=== PATIENT | male | born 1975 | race Hispanic/Latino ===

== ENCOUNTER 2018-11-05 19:44 | Emergency (ER) | payer SELFPAY ==
[2018-11-05 20:12] LABS: #Basophils 0.1 thou/uL (0.0-0.2); #Eosinphils 0.2 thou/uL (0.0-0.7); #Lymphocytes 1.9 thou/uL (1.20-3.40); #Monocytes 0.4 thou/uL (0.11-0.59); #Neutrophils 2.9 thou/uL (1.40-6.50); %Eosinophils 3.4 % (0.0-10.0); %Lymphocytes 34.7 % (21.0-51.0); %Monocytes 7.9 % (0.0-10.0); %Neutrophils 53.1 % (42.0-75.0); Hemoglobin 16.5 g/dL (14.0-18.0); Mean Corpuscular HGB CONC 34.4 g/dL (32.0-36.0); Mean Corpuscular Hemoglobin 30.1 pg (27.0-31.0); Mean Corpuscular Volume 87.4 fL (78.0-98.0); Mean Platelet Volume 9.4 fL (7.4-10.4); Platelet Count 187 thou/uL (130-400); RBC Distribution Width 11.6 % (11.5-14.5); Red Blood Cell (RBC) Count 5.48 mill/uL (4.70-6.10); White Blood Cell (WBC) Count 5.5 thou/uL (4.8-10.8)
[2018-11-05 20:31] LABS: ALT (SGPT) 44 U/L (8-55); AST (SGOT) 25 U/L (5-34); Albumin 4.4 g/dL (3.5-5.0); Alkaline Phosphatase 77 U/L (40-150); Anion Gap 15 mmol/L (10-20); BUN (Urea Nitrogen) 19 mg/dL (8.9-20.6); Bilirubin, Total 0.6 mg/dL (0.2-1.2); Calc. Creatinine Clearance 0 mL/min (70-130); Calcium 9.5 mg/dL (7.8-10.44); Carbon Dioxide 22 mmol/L (22-29); Chloride 106 mmol/L (98-107); Estimated GFR-MDRD 65; Globulin 3.3 g/dL (2.4-3.5); Glucose 99 mg/dL (70-105); Potassium 3.8 mmol/L (3.5-5.1); Protein, Total 7.7 g/dL (6.0-8.3); Sodium 139 mmol/L (136-145)
--- NOTE | 2018-11-05 20:44 | CT ---
CT Brain WO Con History: Dizziness. Hypertensive urgency Comparison: None. Findings: No acute hemorrhage or infarct. No midline shift or mass effect. Ventricular size and extra -axial CSF spaces are normal. Calvarium is intact. The paranasal sinuses and mastoids are clear. Impression: No acute intracranial abnormality.
[2018-11-05] MEDS ORDERED: Metoclopramide HCl 10 MG/2 ML VIAL ONE (20:45)
[2018-11-05] MEDS ORDERED: Meclizine HCl 25 MG TAB ONE (20:45)
[2018-11-05] MEDS ORDERED: hydrALAZINE 20 MG/ML VIAL ONE (22:08)
--- NOTE | 2018-11-10 12:34 | EKG ---
Test Reason : CHEST PAIN Blood Pressure : / mmHG Vent. Rate : 059 BPM Atrial Rate : 059 BPM P-R Int : 154 ms QRS Dur : 090 ms QT Int : 400 ms P-R-T Axes : 028 007 022 degrees QTc Int : 396 ms Sinus bradycardia Otherwise normal ECG Confirmed by ENOC BREEN ([id number]), video effects editor HENRRY NINA ([id number]) on 11/10/2018 12:34:12 PM Referred By: Confirmed By:ENOC BREEN
== END 2018-11-06 00:02 | disposition home or self-care (01) ==
LOC: ERS 19:44
DX: H81.399 Other peripheral vertigo, unspecified ear (principal); I10 Essential (primary) hypertension; Z79.899 Other long term (current) drug therapy
CPT/HCPCS: 36415; 70450; 80053; 84484; 85025; 93005; 96361; 96374; 96375; J0360; J2765; J8597

== ENCOUNTER 2019-04-16 14:39 | Inpatient (IN) | payer SELFPAY ==
[2019-04-16] MEDS ORDERED: Nitroglycerin 2% Ointment 1 INCH/1 GM Packet ONE (15:07)
[2019-04-16] MEDS ORDERED: Iopamidol-370 76% 500 ML 1 ML ONE (15:20)
--- NOTE | 2019-04-16 15:44 | RAD ---
XR Chest 1 View Portable HISTORY: Chest pain COMPARISON: 01/26/2007 FINDINGS: The heart size is normal. The lungs are well expanded without focal areas of consolidation, pneumothorax or pleural effusions. IMPRESSION: No radiographic evidence of acute cardiopulmonary process.
[2019-04-16] MEDS ORDERED: niCARdipine 25 MG in Sodium Chloride 0.9% 250 ML 240 ML IVPB SCH (15:45)
--- NOTE | 2019-04-16 15:47 | CT ---
CT BRAIN WITHOUT CONTRAST: HISTORY:Syncope, fall COMPARISON:11/02/2018 FINDINGS: No evidence of acute infarct, hemorrhage, midline shift or abnormal extra-axial fluid collections is seen. The ventricular size is appropriate and the basilar cisterns are patent. The bony calvarium is intact. The visualized paranasal sinuses and mastoid air cells are well aerated. There is a small scalp contusion posteriorly at the level of the vertex to the right of midline. IMPRESSION: No CT evidence of acute intracranial process.
[2019-04-16 16:05] LABS: #Eosinphils 0.1 thou/uL (0.0-0.7); #Lymphocytes 1.5 thou/uL (1.20-3.40); #Monocytes 0.5 thou/uL (0.11-0.59); #Neutrophils 7.2 thou/uL (1.40-6.50); %Basophils 0.4 % (0.0-1.0); %Eosinophils 0.8 % (0.0-10.0); %Lymphocytes 16.2 % (21.0-51.0); %Monocytes 4.8 % (0.0-10.0); %Neutrophils 77.8 % (42.0-75.0); Hemoglobin 18.6 g/dL (14.0-18.0); Mean Corpuscular HGB CONC 34.6 g/dL (32.0-36.0); Mean Corpuscular Hemoglobin 30.3 pg (27.0-31.0); Mean Corpuscular Volume 87.4 fL (78.0-98.0); Mean Platelet Volume 9.9 fL (7.4-10.4); Platelet Count 178 thou/uL (130-400); RBC Distribution Width 11.4 % (11.5-14.5); Red Blood Cell (RBC) Count 6.13 mill/uL (4.70-6.10); White Blood Cell (WBC) Count 9.3 thou/uL (4.8-10.8)
[2019-04-16 16:25] LABS: ALT (SGPT) 39 U/L (8-55); AST (SGOT) 30 U/L (5-34); Alkaline Phosphatase 89 U/L (40-110); Anion Gap 11 mmol/L (10-20); BUN (Urea Nitrogen) 21 mg/dL (8.9-20.6); Bilirubin, Total 0.5 mg/dL (0.2-1.2); CK (CPK) 121 U/L (30-200); Calc. Creatinine Clearance 0 mL/min (70-130); Calcium 10.1 mg/dL (7.8-10.44); Carbon Dioxide 25 mmol/L (22-29); Chloride 108 mmol/L (98-107); Estimated GFR-MDRD 49; Globulin 3.6 g/dL (2.4-3.5); Glucose 103 mg/dL (70-105); Protein, Total 8.6 g/dL (6.0-8.3); Sodium 140 mmol/L (136-145)
[2019-04-16 16:55] LABS: Bilirubin Negative (Negative); Blood, Urine Negative (Negative); Clarity Clear (Clear); Glucose, Urine (Dipstick) Normal (Negative); Leukocyte Negative Leu/uL (Negative); Nitrite Negative (Negative); Protein, Urine (Dipstick) Negative (Neg-Trace); Urobilinogen Normal mg/dL (Less than 2)
--- NOTE | 2019-04-16 17:47 | CT ---
CTA chest with 3-D rendering: CTA abdomen with 3-D rendering: HISTORY: Chest pain. Syncope. Severe hypertension. COMPARISON: None FINDINGS: No CT evidence for aortic aneurysm or dissection. No evidence for acute pulmonary parenchymal process. No evidence for pleural or pericardial effusion. No evidence for mediastinal mass or adenopathy. No evidence for abdominal aortic aneurysm or dissection. The visualized celiac, superior mesenteric, inferior mesenteric and bilateral renal arteries show no significant acute process. The visualized abdominal viscera is unremarkable. No evidence for significant acute process. IMPRESSION: No CT evidence for aortic aneurysm or aortic dissection.
[2019-04-16] MEDS ORDERED: HYDROcodone/Acetaminophen 5/325 mg Tablet PO PRN (18:27)
[2019-04-16] MEDS ORDERED: Morphine 2 MG/ML SYRINGE SLOW IVP PRN (18:29)
--- NOTE | 2019-04-16 19:26 | HP ---
PRIMARY CARE: [facility], Dr. Menezes. CHIEF COMPLAINT: "I don't remember." HISTORY OF PRESENT ILLNESS: This is a 43-year-old male with history of hypertension, uncontrolled based on history, who was brought to the emergency room by EMS for a syncopal event. The history is all obtained from the patient's daughter, who reports that she was at [facility], where the patient works and a witness described him as falling back from a standing position. He landed on his back and the back of his head. Since that time, he has been asking the same questions. No prior history of this, the patient does not remember how he felt prior to this event. His daughter witnessed him on the floor and he was brought in. The patient does have known high blood pressure and reports taking one medication at home. It has not recently been checked, he reports taking 1 medication for blood pressure and estimates the last visit with his Primary Care Physician was 3 months ago. The patient does complain of a headache and jaw pain at this time. The patient denies any vision changes. (He did buy glasses recently, but since the syncopal event is not noticing changes.) He also denies any speech or swallowing problems, nausea, vomiting, abdominal pain, chest pain, any regular headaches, or palpitations. In the emergency room, the patient received 2 L IV fluid, 1 inch of nitroglycerin paste due to the elevated blood pressures which was since discontinued, and started on a Cardene drip, and Hospitalist called for admission. ALLERGIES: NO KNOWN DRUG ALLERGIES. CURRENT MEDICATIONS: Not obtainable, 1 medication for hypertension. PAST MEDICAL HISTORY: Hypertension. PAST SURGICAL HISTORY: Denies. SOCIAL HISTORY: The patient is . He is Mongolian speaking. His daughter is translating for him by his request. No tobacco and rare alcohol use. FAMILY HISTORY: Significant for hypertension in both parents. REVIEW OF SYSTEMS: Negative for nausea, vomiting, abdominal pain, chest pain, regular headaches, change in health, acute vision changes, urine changes, difficulty with speech or swallowing. All remaining review of systems are reviewed and negative. PHYSICAL EXAMINATION: VITAL SIGNS: Blood pressure 187/139, pulse 138, respirations 22, sat is 100% on room air, temp 98.5. GENERAL: The patient is awake, alert, responsive, answering questions, speaking in full sentences. By report from the daughter, he continually asks the same question. HEENT: His pupils are equal, round, and reactive to light. Tympanic membranes translucent. Oral mucosa is pink and moist. Abrasion in the occipital area, no tenderness to palpation, mild edema in this area. NECK: Supple, nontender. LYMPHATICS: No palpable cervical or supraclavicular lymphadenopathy. LUNGS: Clear to auscultation bilaterally with good air movement. HEART: Normal S1, S2. No significant murmur. ABDOMEN: Soft. Present bowel sounds. Nontender. Nondistended. EXTREMITIES: No edema. NEUROLOGIC: Cranial nerves 2 through 12 are intact. Upper and lower extremity strength 5/5 bilateral. VASCULAR: 2+ dorsalis pedis pulses. PSYCH: The patient appears euthymic, tearful when answering questions. DIAGNOSTIC DATA: EKG, personally reviewed, sinus rhythm, normal axis, normal intervals, no ST changes, abnormal R-wave progression. CT of the brain was negative for any acute process. Chest x-ray is personally reviewed, no acute cardiopulmonary process. CT dissection protocol of the chest, no evidence for aortic aneurysm or aortic dissection. LABORATORY DATA: CBC; 9.3, 18.6, 53.6, 178 with 77.8% neutrophils, 16% lymphocytes. Renal panel; 140, 4.0, 108, 25, 21, 1.56, and 103. Total bilirubin 0.5, AST 30, ALT 39, alkaline phosphatase 89, total protein 8.6, albumin 5.0. Urinalysis is normal. IMPRESSION: 1. Syncopal event, unknown provocation, in patient with uncontrolled hypertension. 2. Hypertensive emergency with syncope. 3. Concussion secondary to above. 4. Acute kidney injury. 5. Hemoconcentration vs polycythemia. PLAN: 1. Admission to the ICU, consultation per protocol. 2. Continuing the Cardene drip with a goal of systolic blood pressure around 170 for tonight, monitor with neurologic checks. Anticipate starting oral antihypertensives tomorrow. 3. Obtain echocardiogram, IV fluid hydration for the kidney injury and hemoconcentration, neurologic checks for the concussion. 4. Due to the tachycardia, we will treat pain, check TSH in the morning. 5. As part of the syncope evaluation, obtain echocardiogram, check a urine drug screen and alcohol level. 6. Monitor renal function. 7. Heart healthy diet. 8. We will need to obtain home medication to determine what medications to start or adjust. 9. DVT prophylaxis with pneumatic compression devices. 10. Falls precautions. 11. GI prophylaxis not indicated. 12. Code status is full. Surrogate decision maker is the patient's . 13. Reviewed the plan of care with the patient, his family, which includes his daughter, who was translating for him. No questions or further needs at the end of evaluation. 14. The patient is at high risk, given age, comorbidities, and current presentation. Job ID: [id number] [facility]
[2019-04-16 19:44] LABS: Troponin I 0.024 ng/mL (< 0.028)
[2019-04-16] MEDS: niCARdipine 25 MG in Sodium Chloride 0.9% 250 ML 240 ML IVPB SCH ×2 (19:45→22:44)
[2019-04-16] MEDS: Sodium Chloride 0.9% 1,000 ML IV SCH (19:51)
[2019-04-16 19:54] LABS: Amphetamine Not Detected (NotDetected); Barbiturates Screen Not Detected (NotDetected); Benzodiazepine Screen Not Detected (NotDetected); Cocaine Metabolite Screen Not Detected (NotDetected); Medtox Control Line Valid? VALID (VALID); Medtox Reader # READER 4; Methadone Not Detected (NotDetected); Methamphetamine Not Detected (NotDetected); Opiate Screen Not Detected (NotDetected); Oxycodone Screen Not Detected (NotDetected); Phencyclidine (PCP) Not Detected (NotDetected); THC/Cannabinoid Screen Not Detected (NotDetected); Tricyclic Screen Not Detected (NotDetected)
[2019-04-16 22:25] LABS: Troponin I 0.031 ng/mL (< 0.028)
[2019-04-17] MEDS: Sodium Chloride 0.9% 1,000 ML IV SCH ×2 (05:22→22:15)
[2019-04-17 05:52] LABS: #Eosinphils 0.1 thou/uL (0.0-0.7); #Lymphocytes 1.8 thou/uL (1.20-3.40); #Monocytes 0.6 thou/uL (0.11-0.59); #Neutrophils 4.1 thou/uL (1.40-6.50); %Basophils 0.1 % (0.0-1.0); %Eosinophils 0.9 % (0.0-10.0); %Lymphocytes 26.7 % (21.0-51.0); %Monocytes 9.7 % (0.0-10.0); %Neutrophils 62.5 % (42.0-75.0); Hemoglobin 15.1 g/dL (14.0-18.0); Mean Corpuscular HGB CONC 33.9 g/dL (32.0-36.0); Mean Corpuscular Hemoglobin 29.7 pg (27.0-31.0); Mean Corpuscular Volume 87.4 fL (78.0-98.0); Mean Platelet Volume 10.3 fL (7.4-10.4); Platelet Count 165 thou/uL (130-400); RBC Distribution Width 11.6 % (11.5-14.5); Red Blood Cell (RBC) Count 5.08 mill/uL (4.70-6.10); White Blood Cell (WBC) Count 6.6 thou/uL (4.8-10.8)
[2019-04-17 05:54] LABS: Anion Gap 10 mmol/L (10-20); BUN (Urea Nitrogen) 14 mg/dL (8.9-20.6); Calc. Creatinine Clearance 130 mL/min (70-130); Calcium 8.9 mg/dL (7.8-10.44); Carbon Dioxide 24 mmol/L (22-29); Cardiac Risk 3.4 (Less than 4.5); Chloride 108 mmol/L (98-107); Cholesterol 170 mg/dl (< 200 Desired); Estimated GFR-MDRD 77; Glucose 107 mg/dL (70-105); HDL Cholesterol 50 mg/dL (>60 Neg Risk); LDL Cholesterol, Calculated 99 mg/dL; Potassium 3.7 mmol/L (3.5-5.1); Sodium 138 mmol/L (136-145); Triglycerides 103 mg/dL (Less than 150)
[2019-04-17] MEDS: HYDROcodone/Acetaminophen 5/325 mg Tablet PO PRN (06:35)
--- NOTE | 2019-04-17 08:13 | PDOC.HOSPP ---
- Subjective Encounter Date: 04/17/19 (f/u HTN emergency) Encounter Time: 08:12 Subjective: Pt this morning does not remember the events of yesterday. reports he's had ongoing dizziness daily to every other day that are brief but recur through the day, sometimes with vomiting. She reports 2 episodes in the past week that pt does not remember. Pt reports some memory of this in the past. Currently c/ o headache and pain all over his body, including chest. - Objective Vital Signs & Weight: Vital Signs (12 hours) Temp Pulse Ox 04/17/19 07:44 100 04/17/19 04:00 98.6 F 04/17/19 00:00 99.4 F Weight Weight 223 lb 15.834 oz Most Recent Monitor Data Heart Rate from ECG 81 NIBP 127/88 NIBP BP-Mean 101 Respiration from ECG 17 SpO2 100 I&O: 04/16/19 04/17/19 04/18/19 06:59 06:59 06:59 Intake Total 1806 Output Total 1675 400 Balance 131 -400 Result Diagrams: 04/17/19 05:06 04/17/19 05:06 EKG Reviewed by me: Yes (tele - sinus 80's) Hospitalist ROS - Medication Medications: Active Medications Generic Name Dose Route Start Last Admin Trade Name Freq PRN Reason Stop Dose Admin Hydrocodone Bitart/Acetaminophen 1 tab 04/16/19 18:27 04/16/19 22:51 [place] 5/325 PO 1 tab Q4H PRN Administration Moderate Pain (4-6) Hydrocodone Bitart/Acetaminophen 2 tab 04/16/19 18:27 04/17/19 06:35 [place] 5/325 PO 2 tab Q4H PRN Administration Severe Pain (7-10) Nicardipine HCl 25 mg/ Sodium 250 mls @ 0 mls/hr 04/16/19 18:30 04/16/19 22: 44 Chloride IVPB 250 mls INF LISA Administration Protocol Titrate Sodium Chloride 1,000 mls @ 100 mls/hr 04/16/19 18:45 04/17/19 05:22 Normal Saline 0.9% IV 1,000 mls .Q10H LISA Administration Sodium Chloride 10 ml 04/16/19 21:00 04/16/19 19:51 Flush - Normal Saline IVF 10 ml Q12HR LISA Administration - Exam General Appearance: NAD, awake alert Eye: PERRL Heart: RRR, no murmur, no gallops, no rubs Respiratory: CTAB, no wheezes, no rales, no ronchi Gastrointestinal: soft, non-tender, non-distended, normal bowel sounds Extremities: no cyanosis, no clubbing, no edema Neurological: cranial nerve grossly intact, no focal deficits Musculoskeletal: normal tone Psychiatric: normal affect Hosp A/P (1) Hypertensive emergency Code(s): I16.1 - HYPERTENSIVE EMERGENCY Status: Resolved (2) Acute kidney injury Code(s): N17.9 - ACUTE KIDNEY FAILURE, UNSPECIFIED Status: Resolved (3) Concussion Code(s): S06.0X9A - CONCUSSION W LOSS OF CONSCIOUSNESS OF UNSP DURATION, INIT Status: Acute Qualifiers: Encounter type: subsequent encounter (4) Syncope Code(s): R55 - SYNCOPE AND COLLAPSE Status: Acute Qualifiers: Syncope type: unspecified Qualified Code(s): R55 - Syncope and collapse (5) Dehydration Code(s): E86.0 - DEHYDRATION Status: Resolved - Plan Labs normalized, bp normalized and has been off cardene overnight with normal bp 's. - check echo - obtain troponin from this morning's lab draws - one slightly indeterminant last night - transfer to tele - pt's home med is beta-daljit - hold on initiating this for now, as it may be contributing to his sx - most recent bp ios 140's systolic - monitor today and consider amloidipine - Neuro consult for dizziness - falls precautions, PT evaluation - continue to tx pain - d/c IVF later today when taking adequate PO dvt prophy - scd's gi prophy - not indicated code status anticipate d/c tomorrow based on management of blood pressure, monitoring concussion sx and input of Neurology with regards to dizziness. reviewed plan of care with patient/ through hospital interpretor system, no questions or further needs at end of eval.
[2019-04-17 10:42] LABS: Troponin I 0.032 ng/mL (< 0.028)
[2019-04-17] MEDS: Acetaminophen 325 MG TAB PO PRN ×2 (15:50→20:47)
--- NOTE | 2019-04-17 17:23 | PDOC.EVN ---
Event Note - Event Note Event Note: bp's elevated starting this afternoon, pt not reporting any significant pain. Will resume his home metoprolol dose, and start low dose amlodipine. Monitor bp 's and titrate. Cardiology consult placed earlier given the markedly elevated bp's on admission , syncopal event and indeterminant troponin.
[2019-04-17] MEDS ORDERED: Amlodipine 5 MG TAB PO SCH (17:30)
[2019-04-17] MEDS: NIFEdipine XL 30 MG TAB PO SCH (19:03)
[2019-04-17] MEDS ORDERED: NIFEdipine XL 30 MG TAB PO SCH (19:30)
[2019-04-17] MEDS: Metoprolol Tartrate 25 MG TAB PO SCH (20:47)
[2019-04-17] MEDS ORDERED: Metoprolol Tartrate 50 MG TAB PO SCH (21:00)
--- NOTE | 2019-04-18 00:14 | CON ---
DATE OF CONSULTATION: 04/17/2019 CONSULTING PHYSICIAN: Hospitalist Service. IMPRESSION: Possible unwitnessed seizure. PLAN: 1. MRI of the brain with and without contrast. 2. EEG. 3. Monitor clinical course. HISTORY OF PRESENT ILLNESS: Mr. Babcock is a 43-year-old man, who is Somali-speaking only. He works for a local company. He apparently had a blackout while he was at work. In questioning me at this point, he has no memory of going to work. He has no memory of anything that took place until he awoke in the hospital. He has never had any blackouts like this before. At this point, he complains of diffuse pain throughout his body. He has some low-grade headache. He was a bit hypertensive and is on a Cardene drip. His initial CT scan of the brain was unremarkable. His lab work was all in normal ranges. Tox screen was negative. He reports some occasional episodes of dizziness in the past, but has never lost awareness. He has never had a seizure. PAST MEDICAL HISTORY: Hypertension. ALLERGIES: NONE. SOCIAL HISTORY: Unremarkable. FAMILY HISTORY: Unremarkable. REVIEW OF SYSTEMS: Ten-system review of systems is otherwise negative. PHYSICAL EXAMINATION: GENERAL: He is a well-nourished, middle-aged man, in no apparent distress. VITAL SIGNS: Have been stable. He is afebrile. HEENT: Pupils are equal and reactive. Conjunctivae clear. Oropharynx clear. There is no tongue trauma present. NECK: Supple, but there is some tenderness present at the cervical chest junction. EXTREMITIES: Without any cyanosis or edema. NEUROLOGIC: He is alert and appropriate. His speech is fluent and clear. Cranial nerves are intact. Motor exam shows good strength. There are no abnormal movements. Sensations intact. Gait was not tested. SUMMARY: This is a middle-aged man with a prolonged period of amnesia. He has some diffuse body aches, which could imply that he had had a generalized convulsion that was unwitnessed. There were no cameras in the area that he was working to record what took place. We will complete his seizure workup, but there is no need to start anticonvulsants until we have confirmation that this is a recurrent problem. Job ID: [id number]
--- NOTE | 2019-04-18 01:22 | CON ---
DATE OF CONSULTATION: SUBJECTIVE: Patient is a 43-year-old gentleman who presents for evaluation after losing consciousness. The patient has a history of hypertension. The patient states that a few days prior to admission, he started being nauseated and felt extremely weak. He states that his symptoms progressed for the past next several days. He went to work and he apparently suddenly lost consciousness. The patient does not recall the event. He apparently did not report recalling that he had lost consciousness or lose control of his bladder or bowels. The patient denied having any chest discomfort. He has no previous history of loss of consciousness. PAST MEDICAL HISTORY: Significant for hypertension. PAST SURGICAL HISTORY: He has had a circumcision. SOCIAL HISTORY: He is a nonsmoker. ALLERGIES: NO KNOWN DRUG ALLERGIES. MEDICATIONS: On admission was metoprolol 50 b.i.d. FAMILY HISTORY: Positive family history of heart disease. REVIEW OF SYSTEMS: Ten-point system otherwise unremarkable. PHYSICAL EXAMINATION: GENERAL: Obese gentleman, in no acute distress. VITAL SIGNS: Blood pressure 176/105. NECK: Showed no jugular venous distention. LUNGS: Clear to auscultation. HEART: Regular rate and rhythm. Normal S1, S2. ABDOMEN: Nondistended. EXTREMITIES: Showed no edema. VASCULAR: Radial pulses are 2+. LABORATORY RESULTS: White blood count is 6.6, hemoglobin 15.1, hematocrit 44.4, platelets 165. Sodium 138, potassium 3.7, chloride 108, bicarbonate 24, BUN 14, creatinine 1.0. Troponin was 0.032. His EKG revealed to have normal sinus rhythm with a normal ECG. His echocardiogram revealed him to have normal left ventricular ejection fraction 60% to 65% with diastolic dysfunction. His CT scan revealed no evidence of aortic dissection. Chest x-ray showed normal heart size with clear lung stevenson. IMPRESSION: 1. Syncope. 2. Hypertensive crisis. 3. Obesity. This gentleman had a syncopal episode. He presented with a syncopal episode and a hypertensive crisis. From a cardiac standpoint, he has an unremarkable electrocardiogram. His echocardiogram reveals normal ventricular function. It is unclear what is the etiology of his syncopal episode. The patient will be started on nifedipine for better control of his blood pressure. I would continue a lower dose metoprolol. We will monitor him for any evidence of arrhythmias or heart block. We will follow this patient with you through his hospitalization. This is a critical care note, the time is 30 minutes. Job ID: [id number]
[2019-04-18] MEDS ORDERED: Acetaminophen 325 MG TAB ONE (06:45)
[2019-04-18] MEDS ORDERED: Amlodipine 5 MG TAB PO SCH (09:00)
[2019-04-18] MEDS ORDERED: Lorazepam 2 MG/ML VIAL ONE ×2 (09:07→09:08)
[2019-04-18] MEDS: Metoprolol Tartrate 25 MG TAB PO SCH ×3 (09:16→20:51)
[2019-04-18] MEDS: NIFEdipine XL 60 MG TAB PO SCH ×2 (09:16→20:51)
--- NOTE | 2019-04-18 11:40 | MRI ---
MRI brain without and with gadolinium contrast HISTORY: Seizures. Fall. Syncope. FINDINGS: There is no evidence of acute intracranial hemorrhage or infarct. The ventricles appear nor mal in size, shape and position. There is no mass effect, shift of midline structures, or abnormal areas of contrast enhancement. Coronal images show the hippocampal formations to be symmetric. Visual ized paranasal sinuses remain well aerated. IMPRESSION: No acute intracranial abnormalities are demonstrated.
[2019-04-18] MEDS: NIFEdipine XL 30 MG TAB PO SCH (13:19)
--- NOTE | 2019-04-18 16:05 | PDOC.HOSPP ---
- Subjective Encounter Date: 04/18/19 (f/u syncope) Encounter Time: 12:30 Subjective: 43 y/o male now on HD3 s/p syncopal event with concussion, hypertensive urgency and ongoing episodes of dizziness prior to admission. Pt initially was in the ICU on a cardene gtt, that was d/c. He was resumed on oral medications, transferred to telemetry and has been evaluated by both Neurology and Cardiology. He had a mild CULLEN that resolved with IVF. Pt c/o headache - taking tylenol with brief improvement. Reports that he doesnt like the way morphine or norco make him feel and has declined both. Also c/o the same pain in his chest with movement. Denies n/v, denies any new sx today. - Objective Vital Signs & Weight: Vital Signs (12 hours) Pulse Pulse BP BP 04/18/19 12:03 67 62 149/100 H 137/94 H Weight Weight 223 lb 15.834 oz Most Recent Monitor Data Heart Rate from ECG 78 NIBP 176/105 NIBP BP-Mean 128 Respiration from ECG 22 SpO2 100 I&O: 04/17/19 04/18/19 04/19/19 06:59 06:59 06:59 Intake Total 1806 1353 Output Total 1675 1800 Balance 131 -447 Result Diagrams: 04/17/19 05:06 04/17/19 05:06 EKG Reviewed by me: Yes (tele - sinus 50-70's) Hospitalist ROS - Medication Medications: Active Medications Generic Name Dose Route Start Last Admin Trade Name Freq PRN Reason Stop Dose Admin Acetaminophen 650 mg 04/16/19 18:27 04/17/19 20:47 Tylenol PO 650 mg Q4H PRN Administration Headache/Fever/Mild Pain (1-3) Hydrocodone Bitart/Acetaminophen 1 tab 04/16/19 18:27 04/16/19 22:51 [place] 5/325 PO 1 tab Q4H PRN Administration Moderate Pain (4-6) Hydrocodone Bitart/Acetaminophen 2 tab 04/16/19 18:27 04/17/19 06:35 [place] 5/325 PO 2 tab Q4H PRN Administration Severe Pain (7-10) Metoprolol Tartrate 25 mg 04/17/19 21:00 04/18/19 13:19 Lopressor PO Not Given BID LISA Nifedipine 30 mg 04/17/19 21:00 04/18/19 13:19 Procardia Xl PO Not Given BID LISA Sodium Chloride 10 ml 04/17/19 21:00 04/18/19 13:19 Flush - Normal Saline IVF Not Given Q12HR LISA - Exam General Appearance: NAD Eye - other findings: pupils equal and round Heart: RRR, no murmur Respiratory: CTAB, no wheezes, no rales, no ronchi Gastrointestinal: soft, non-tender, non-distended, normal bowel sounds Extremities: no cyanosis, no clubbing, no edema Neurological: no focal deficits Musculoskeletal: normal tone, normal strength Psychiatric: normal affect Hosp A/P (1) Hypertensive emergency Code(s): I16.1 - HYPERTENSIVE EMERGENCY Status: Resolved (2) Acute kidney injury Code(s): N17.9 - ACUTE KIDNEY FAILURE, UNSPECIFIED Status: Resolved (3) Concussion Code(s): S06.0X9A - CONCUSSION W LOSS OF CONSCIOUSNESS OF UNSP DURATION, INIT Status: Acute Qualifiers: Encounter type: subsequent encounter (4) Syncope Code(s): R55 - SYNCOPE AND COLLAPSE Status: Acute Qualifiers: Syncope type: unspecified Qualified Code(s): R55 - Syncope and collapse (5) Dehydration Code(s): E86.0 - DEHYDRATION Status: Resolved - Plan appreciate Neuro eval - normal MRI, EEG result pending Appreciate Cardiology eval - beta daljit dose lowered and nifedipine initiated recheck labs in AM continue headache management -will order prn low dose fentanyl. Hold on tramadol due to current evaluation for seizure. dvt prophy - scd's gi prophy - not indicated code status full reviewed plan of care with patient/ through interpretor, no questions or further needs at end of eval. Anticipate discharge to home when cleared by Neurology.
[2019-04-18] MEDS: Fentanyl 100 MCG/2 ML VIAL SLOW IVP PRN (17:23)
[2019-04-18] MEDS: Acetaminophen 325 MG TAB PO PRN (17:23)
[2019-04-19] MEDS: Fentanyl 100 MCG/2 ML VIAL SLOW IVP PRN (04:08)
[2019-04-19 04:58] LABS: Anion Gap 11 mmol/L (10-20); BUN (Urea Nitrogen) 16 mg/dL (8.9-20.6); Calc. Creatinine Clearance 132 mL/min (70-130); Calcium 9.8 mg/dL (7.8-10.44); Carbon Dioxide 26 mmol/L (22-29); Chloride 105 mmol/L (98-107); Estimated GFR-MDRD 78; Glucose 113 mg/dL (70-105); Potassium 3.7 mmol/L (3.5-5.1); Sodium 138 mmol/L (136-145)
--- NOTE | 2019-04-19 13:03 | NM ---
EXAM: CARDIAC SPECT HISTORY: Chest pain, syncope TECHNIQUE: A myocardial perfusion scan was performed using the single isotope 1 day protocol with alma hnetium 99m sestamibi. [10 mCi] was injected intravenously for the rest exam followed by 30 mCi for the stress study. Pharmacologic stress with adenosine was monitored and interpreted by BRITTA Nguyen FINDINGS: Homogeneous tracer distribution is seen in the myocardial segments on stress and rest image s without fixed or reversible defects. Gated SPECT LVEF: 60% Wall motion exam: Normal IMPRESSION: Normal myocardial perfusion scan
[2019-04-19] MEDS: Metoprolol Tartrate 25 MG TAB PO SCH ×2 (14:48→20:47)
[2019-04-19] MEDS: NIFEdipine XL 60 MG TAB PO SCH (14:48)
--- NOTE | 2019-04-19 14:51 | PDOC.HOSPP ---
- Subjective Encounter Date: 04/19/19 Subjective: no chest pain or palp or sob - Objective Vital Signs & Weight: Vital Signs (12 hours) Temp Pulse Pulse Pulse Resp BP BP 04/19/19 14:25 95 97 152/95 H 144/93 H 04/19/19 07:49 98.9 F 80 18 04/19/19 07:40 04/19/19 04:00 97.9 F 97 20 BP Pulse Ox 04/19/19 14:25 04/19/19 07:49 134/84 95 04/19/19 07:40 95 04/19/19 04:00 109/52 L 93 L Weight Weight 223 lb 15.834 oz Most Recent Monitor Data Heart Rate from ECG 78 NIBP 176/105 NIBP BP-Mean 128 Respiration from ECG 22 SpO2 100 I&O: 04/18/19 04/19/19 04/20/19 06:59 06:59 06:59 Intake Total 1353 480 Output Total 1800 675 Balance -447 -195 Result Diagrams: 04/17/19 05:06 04/19/19 04:27 Hospitalist ROS - Medication Medications: Active Medications Generic Name Dose Route Start Last Admin Trade Name Freq PRN Reason Stop Dose Admin Acetaminophen 650 mg 04/16/19 18:27 04/18/19 17:23 Tylenol PO 650 mg Q4H PRN Administration Headache/Fever/Mild Pain (1-3) Hydrocodone Bitart/Acetaminophen 1 tab 04/16/19 18:27 04/16/19 22:51 [place] 5/325 PO 1 tab Q4H PRN Administration Moderate Pain (4-6) Hydrocodone Bitart/Acetaminophen 2 tab 04/16/19 18:27 04/17/19 06:35 [place] 5/325 PO 2 tab Q4H PRN Administration Severe Pain (7-10) Fentanyl 25 mcg 04/18/19 16:08 04/19/19 04:08 Sublimaze SLOW IVP 25 mcg Q2H PRN Administration Moderate to Severe Pain (6-10) Metoprolol Tartrate 25 mg 04/17/19 21:00 04/18/19 20:51 Lopressor PO 25 mg BID LISA Administration Nifedipine 60 mg 04/18/19 21:00 04/18/19 20:51 Procardia Xl PO 60 mg BID LISA Administration Sodium Chloride 10 ml 04/17/19 21:00 04/18/19 20:51 Flush - Normal Saline IVF 10 ml Q12HR LISA Administration - Exam General Appearance: NAD, awake alert Eye: PERRL, anicteric sclera ENT: no oropharyngeal lesions, moist mucosa Neck: supple, no JVD Heart: RRR, no murmur Respiratory: no wheezes, no rales Gastrointestinal: soft, non-tender, non-distended, normal bowel sounds Extremities: no cyanosis, no edema Neurological: cranial nerve grossly intact, no focal deficits Psychiatric: normal affect, A&O x 3 Hosp A/P (1) HTN (hypertension) Code(s): I10 - ESSENTIAL (PRIMARY) HYPERTENSION Status: Acute Qualifiers: Hypertension type: essential hypertension Qualified Code(s): I10 - Essential (primary) hypertension (2) Syncope Code(s): R55 - SYNCOPE AND COLLAPSE Status: Resolved Qualifiers: Syncope type: unspecified Qualified Code(s): R55 - Syncope and collapse (3) Dehydration Code(s): E86.0 - DEHYDRATION Status: Resolved - Plan is on procardia, lopressor suggest decrease dose of procardia xl, sbp around 90-100 now stress test is -ve echo, MRI brain, CT dissection protocol have all been -ve so far likely dc plan home later today ?event monitor
[2019-04-19] MEDS ORDERED: ADENOSINE 60 MG/20 ML VIAL ONE (16:25)
[2019-04-20] MEDS: NIFEdipine XL 60 MG TAB PO SCH ×2 (01:26→21:01)
[2019-04-20] MEDS ORDERED: Lidocaine 1% (PF) 30 ML VIAL ONE (07:40)
[2019-04-20] MEDS ORDERED: Lidocaine 1% w/Epinephrine 1:100K 20 ML VIAL ONE (07:41)
[2019-04-20] MEDS: Metoprolol Tartrate 25 MG TAB PO SCH ×2 (09:35→21:02)
--- NOTE | 2019-04-20 12:09 | PDOC.HOSPP ---
- Subjective Encounter Date: 04/20/19 Encounter Time: 10:00 Subjective: No complaint expressed.. - Objective Vital Signs & Weight: Vital Signs (12 hours) Temp Pulse Resp BP BP Pulse Ox 04/20/19 11:10 98.1 F 77 28 H 132/87 96 04/20/19 07:55 98.3 F 93 20 139/85 95 04/20/19 07:35 95 04/20/19 04:02 97.8 F 80 16 124/82 96 Weight Weight 223 lb 15.834 oz Most Recent Monitor Data Heart Rate from ECG 78 NIBP 176/105 NIBP BP-Mean 128 Respiration from ECG 22 SpO2 100 I&O: 04/19/19 04/20/19 04/21/19 06:59 06:59 06:59 Intake Total 480 480 Output Total 675 Balance -195 480 Result Diagrams: 04/17/19 05:06 04/19/19 04:27 Hospitalist ROS - Medication Medications: Active Medications Generic Name Dose Route Start Last Admin Trade Name Freq PRN Reason Stop Dose Admin Acetaminophen 650 mg 04/16/19 18:27 04/18/19 17:23 Tylenol PO 650 mg Q4H PRN Administration Headache/Fever/Mild Pain (1-3) Hydrocodone Bitart/Acetaminophen 1 tab 04/16/19 18:27 04/16/19 22:51 [place] 5/325 PO 1 tab Q4H PRN Administration Moderate Pain (4-6) Hydrocodone Bitart/Acetaminophen 2 tab 04/16/19 18:27 04/17/19 06:35 [place] 5/325 PO 2 tab Q4H PRN Administration Severe Pain (7-10) Fentanyl 25 mcg 04/18/19 16:08 04/19/19 04:08 Sublimaze SLOW IVP 25 mcg Q2H PRN Administration Moderate to Severe Pain (6-10) Metoprolol Tartrate 25 mg 04/17/19 21:00 04/20/19 09:35 Lopressor PO 25 mg BID LISA Administration Nifedipine 60 mg 04/19/19 21:00 04/20/19 01:26 Procardia Xl PO Not Given HS LISA Sodium Chloride 10 ml 04/17/19 21:00 04/20/19 09:35 Flush - Normal Saline IVF 10 ml Q12HR LISA Administration - Exam Eye: PERRL Neck: no JVD Heart: RRR Respiratory: CTAB Gastrointestinal: soft Extremities: no edema Neurological: no weakness Psychiatric: A&O x 3 Hosp A/P (1) HTN (hypertension) Code(s): I10 - ESSENTIAL (PRIMARY) HYPERTENSION Status: Acute Qualifiers: Hypertension type: essential hypertension Qualified Code(s): I10 - Essential (primary) hypertension (2) Hypertensive emergency Code(s): I16.1 - HYPERTENSIVE EMERGENCY Status: Resolved Plan: controlled.. (3) Syncope Code(s): R55 - SYNCOPE AND COLLAPSE Status: Resolved Qualifiers: Syncope type: unspecified Qualified Code(s): R55 - Syncope and collapse (4) Acute kidney injury Code(s): N17.9 - ACUTE KIDNEY FAILURE, UNSPECIFIED Status: Resolved Plan: Resolved. - Plan Continue current therapy.. Home when ok with cardiology..
[2019-04-20] MEDS ORDERED: Meclizine HCl 12.5 MG TAB PO PRN (19:19)
[2019-04-20] MEDS ORDERED: Meclizine HCl 12.5 MG TAB PO SCH (19:30)
--- NOTE | 2019-04-20 19:37 | CCL ---
DATE: 04/20/19 PROCEDURE: Insertion of permanent environmental monitoring technician, [employer], [employer] patient monitor, model MDP Linq 11, ser ial #[id number]. COMPLICATIONS: None. DESCRIPTION OF PROCEDURE: The patient was taken to the Cardiac Stock Lifter area and prepped and draped in the usual sterile fashio n. Lidocaine was used for local anesthesia. Incision was made at the fourth intercostal space and lef t pectoral region utilizing a skin puncture. The insertable environmental monitoring technician Linq was inserted through the puncture site with the Linq insertion tool. Dermabond and steri-strips were applied to the site in the usual sterile fashion. RECOMMENDATIONS: Follow-up in the office in one week for wound check. Continue monitoring.
[2019-04-20] MEDS: HYDROcodone/Acetaminophen 5/325 mg Tablet PO PRN (21:00)
[2019-04-21] MEDS: HYDROcodone/Acetaminophen 5/325 mg Tablet PO PRN (08:36)
[2019-04-21] MEDS: Metoprolol Tartrate 25 MG TAB PO SCH (08:36)
[2019-04-21] MEDS ORDERED: Ondansetron ODT 4 MG TAB PO PRN (09:58)
--- NOTE | 2019-04-21 12:45 | PDOC.HOSPP ---
- Subjective Encounter Date: 04/21/19 Encounter Time: 12:35 Subjective: Some dizziness, most likely from pain medications.. - Objective Vital Signs & Weight: Vital Signs (12 hours) Temp Pulse Resp BP BP Pulse Ox 04/21/19 11:13 97.3 F L 73 17 123/80 96 04/21/19 08:00 97.2 F L 85 17 133/80 96 04/21/19 04:00 97.9 F 64 20 122/70 95 Weight Weight 223 lb 15.834 oz Most Recent Monitor Data Heart Rate from ECG 78 NIBP 176/105 NIBP BP-Mean 128 Respiration from ECG 22 SpO2 100 I&O: 04/20/19 04/21/19 04/22/19 06:59 06:59 06:59 Intake Total 480 Balance 480 Result Diagrams: 04/17/19 05:06 04/19/19 04:27 Hospitalist ROS - Medication Medications: Active Medications Generic Name Dose Route Start Last Admin Trade Name Freq PRN Reason Stop Dose Admin Acetaminophen 650 mg 04/16/19 18:27 04/18/19 17:23 Tylenol PO 650 mg Q4H PRN Administration Headache/Fever/Mild Pain (1-3) Fentanyl 25 mcg 04/18/19 16:08 04/19/19 04:08 Sublimaze SLOW IVP 25 mcg Q2H PRN Administration Moderate to Severe Pain (6-10) Meclizine HCl 12.5 mg 04/20/19 19:19 04/21/19 09:29 Antivert PO 12.5 mg TIDPRN PRN Administration Dizziness Metoprolol Tartrate 25 mg 04/17/19 21:00 04/21/19 08:36 Lopressor PO 25 mg BID LISA Administration Nifedipine 60 mg 04/19/19 21:00 04/20/19 21:01 Procardia Xl PO 60 mg HS LISA Administration Sodium Chloride 10 ml 04/17/19 21:00 04/21/19 08:37 Flush - Normal Saline IVF 10 ml Q12HR LISA Administration - Exam Neck: no JVD Heart: RRR Respiratory: CTAB Gastrointestinal: soft Extremities: no edema Neurological: no weakness Psychiatric: normal affect Hosp A/P (1) HTN (hypertension) Code(s): I10 - ESSENTIAL (PRIMARY) HYPERTENSION Status: Acute Qualifiers: Hypertension type: essential hypertension Qualified Code(s): I10 - Essential (primary) hypertension (2) Hypertensive emergency Code(s): I16.1 - HYPERTENSIVE EMERGENCY Status: Resolved (3) Syncope Code(s): R55 - SYNCOPE AND COLLAPSE Status: Resolved Qualifiers: Syncope type: unspecified Qualified Code(s): R55 - Syncope and collapse (4) Acute kidney injury Code(s): N17.9 - ACUTE KIDNEY FAILURE, UNSPECIFIED Status: Resolved - Plan Continue current therapy.. Blood Pressure is well controlled.. Home later today if he is feeling better.
[2019-04-21 15:55] VITALS: BP 134/80; TEMP 98.2
--- NOTE | 2019-04-22 03:52 | DIS ---
DATE OF ADMISSION: 04/16/2019 DATE OF DISCHARGE: 04/21/2019 ADMITTING DIAGNOSES: 1. Syncopal episode. 2. Hypertensive emergency. 3. Concussion. 4. Acute kidney injury. 5. Hemoconcentration versus polycythemia. DISCHARGE DIAGNOSES: 1. Hemoconcentration. 2. Syncopal episode. 3. Hypertensive emergency. 4. Concussion. 5. Acute kidney injury. CONSULTANTS: 1. Dr. Ricardo. 2. Dr. Solares. PROCEDURES: Brain CT, chest x-ray, chest CT, echocardiogram, brain MRI, nuclear stress test and EEG. COURSE OF HOSPITALIZATION: Responded well to management. The patient's blood pressure is well controlled. He is to follow up with Dr. Ricardo and Dr. Solares along with his PCP. There is no need to start anticonvulsant medications at this time per neurologist. For today's physical examination, please see patient's medical record progress note section. DISCHARGE MEDICATION: Please see discharge medication reconciliation sheet. As mentioned above, the patient is to follow up with Neurology, Cardiology, and his PCP. DISCHARGE TIME: 31 minutes. Job ID: [id number] MTDD
== END 2019-04-21 16:40 | disposition home or self-care (01) | DRG 261 ==
LOC: ERS 14:39 → CCU 19:28 → 2NO 04-17 19:29
PROVIDERS: ADMIT Family Medicine; ATTEND Family Medicine
PROC: 0JH632Z Insertion of Monitoring Device into Chest Subcutaneous Tissue and Fascia, Percutaneous Approach (ICD-10-PCS; principal; 2019-04-20)
DX: R55 Syncope and collapse (principal); S06.0X9A Concussion with loss of consciousness of unspecified duration, initial encounter; I16.1 Hypertensive emergency; N17.9 Acute kidney failure, unspecified; E86.0 Dehydration; W18.30XA Fall on same level, unspecified, initial encounter; Y92.69 Other specified industrial and construction area as the place of occurrence of the external cause; Y99.0 Civilian activity done for income or pay; E66.9 Obesity, unspecified
CPT/HCPCS: 33285; 36415; 70450; 70553; 71045; 71275; 72191; 74175; 78452; 80048; 80053; 80061; 80306; 80307; 81003; 82550; 84443; 84484; 85025; 93005; 93017; 93306; 95816; 95819; 96360; 96361; 96365; 96366; 99292; A9500; C1764; J2001; J2060; J3010; J7050; J8597; Q9967

== ENCOUNTER 2022-03-11 12:08 | Inpatient (IN) | payer OTHER, SELFPAY ==
[2022-03-11 12:54] LABS: #Eosinphils 0.1 thou/uL (0.0-0.7); #Lymphocytes 1.8 thou/uL (1.20-3.40); #Monocytes 0.4 thou/uL (0.11-0.59); #Neutrophils 2.5 thou/uL (1.40-6.50); %Eosinophils 1.9 % (0.0-10.0); %Lymphocytes 38.1 % (21.0-51.0); %Monocytes 7.9 % (0.0-10.0); %Neutrophils 52.1 % (42.0-75.0); Hemoglobin 16.9 g/dL (14.0-18.0); Mean Corpuscular HGB CONC 33.3 g/dL (32.0-36.0); Mean Corpuscular Hemoglobin 29.9 pg (27.0-31.0); Mean Corpuscular Volume 89.7 fl (78.0-98.0); Mean Platelet Volume 10.1 fL (7.4-10.4); Platelet Count 160 thou/uL (130-400); RBC Distribution Width 11.8 % (11.5-14.5); Red Blood Cell (RBC) Count 5.66 mill/uL (4.70-6.10); White Blood Cell (WBC) Count 4.8 thou/uL (4.8-10.8)
[2022-03-11] MEDS ORDERED: Ondansetron PF 4 MG/2 ML Vial ONE (13:05)
[2022-03-11 13:09] LABS: ALT (SGPT) 44 U/L (8-55); AST (SGOT) 31 U/L (5-34); Albumin 4.6 g/dL (3.5-5.0); Alkaline Phosphatase 85 U/L (40-110); Anion Gap 11 mmol/L (10-20); BUN (Urea Nitrogen) 15 mg/dL (8.9-20.6); Bilirubin, Total 0.6 mg/dL (0.2-1.2); CK (CPK) 106 U/L (30-200); Calc. Creatinine Clearance 0 mL/min (70-130); Carbon Dioxide 27 mmol/L (22-29); Chloride 104 mmol/L (98-107); Estimated GFR 67; Globulin 3.4 g/dL (2.4-3.5); Glucose 139 mg/dL (70-105); Potassium 4.3 mmol/L (3.5-5.1); Sodium 138 mmol/L (136-145)
[2022-03-11] MEDS ORDERED: Senokot S 8.6-50 MG TAB PO PRN (14:18)
[2022-03-11] MEDS ORDERED: Acetaminophen 325 MG TAB PO PRN (14:18)
[2022-03-11] MEDS: hydrALAZINE 25 MG TAB PO SCH ×2 (16:45→21:49)
[2022-03-11 18:07] VITALS: BMI 40.4
[2022-03-11] MEDS: Heparin 5,000 UNITS/ML VIAL SC SCH ×2 (18:31→21:50)
[2022-03-11] MEDS: Metoprolol Tartrate 50 MG TAB PO SCH (21:49)
[2022-03-12 05:14] LABS: #Eosinphils 0.1 thou/uL (0.0-0.7); #Lymphocytes 2.2 thou/uL (1.20-3.40); #Monocytes 0.8 thou/uL (0.11-0.59); #Neutrophils 3.6 thou/uL (1.40-6.50); %Basophils 0.1 % (0.0-1.0); %Lymphocytes 33.1 % (21.0-51.0); %Monocytes 11.5 % (0.0-10.0); %Neutrophils 53.4 % (42.0-75.0); Hemoglobin 15.5 g/dL (14.0-18.0); Mean Corpuscular HGB CONC 33.5 g/dL (32.0-36.0); Mean Corpuscular Hemoglobin 30.3 pg (27.0-31.0); Mean Corpuscular Volume 90.4 fl (78.0-98.0); Mean Platelet Volume 10.3 fL (7.4-10.4); Platelet Count 167 thou/uL (130-400); RBC Distribution Width 11.9 % (11.5-14.5); Red Blood Cell (RBC) Count 5.13 mill/uL (4.70-6.10); White Blood Cell (WBC) Count 6.8 thou/uL (4.8-10.8)
[2022-03-12 05:41] LABS: Anion Gap 12 mmol/L (10-20); BUN (Urea Nitrogen) 17 mg/dL (8.9-20.6); Calc. Creatinine Clearance 111 mL/min (70-130); Carbon Dioxide 23 mmol/L (22-29); Chloride 105 mmol/L (98-107); Potassium 4.1 mmol/L (3.5-5.1); Sodium 136 mmol/L (136-145)
[2022-03-12 05:42] LABS: ALT (SGPT) 37 U/L (8-55); AST (SGOT) 29 U/L (5-34); Alkaline Phosphatase 71 U/L (40-110); Bilirubin, Total 0.6 mg/dL (0.2-1.2); Calcium 9.7 mg/dL (7.8-10.44); Estimated GFR 67; Globulin 3.4 g/dL (2.4-3.5); Glucose 115 mg/dL (70-105); Protein, Total 7.4 g/dL (6.0-8.3)
[2022-03-12] MEDS: Heparin 5,000 UNITS/ML VIAL SC SCH ×3 (09:54→20:15)
[2022-03-12] MEDS: hydrALAZINE 25 MG TAB PO SCH ×4 (09:55→20:15)
[2022-03-12] MEDS: Sodium Chloride 0.9% 1,000 ML IV SCH ×2 (10:01→23:11)
[2022-03-12] MEDS: Metoprolol Tartrate 50 MG TAB PO SCH (10:02)
[2022-03-13] MEDS ORDERED: Amlodipine 10 MG TAB PO SCH (07:45)
[2022-03-13] MEDS: hydrALAZINE 25 MG TAB PO SCH ×4 (07:50→21:24)
[2022-03-13] MEDS: Heparin 5,000 UNITS/ML VIAL SC SCH ×3 (07:51→21:23)
[2022-03-13] MEDS ORDERED: Metoclopramide HCl 10 MG/2 ML VIAL IVP SCH (11:45)
[2022-03-13] MEDS ORDERED: Metoprolol Tartrate 5 MG/5 ML VIAL IVP SCH ×2 (13:02→19:45)
[2022-03-13 15:40] LABS: Bacteria/HPF None Seen HPF (None Seen); Bilirubin Negative (Negative); Blood, Urine Negative (Negative); Clarity Clear (Clear); Glucose, Urine (Dipstick) Normal (Negative); Ketone, Urine Negative (Negative); Leukocyte Negative Leu/uL (Negative); Nitrite Negative (Negative); Protein, Urine (Dipstick) Negative (Neg-Trace); RBC/HPF 0-3 HPF (0-3); Specific Gravity, Urine 1.011 (1.002-1.036); Squamous Epithelial None Seen HPF (0-3); Urobilinogen Normal mg/dL (Less than 2); WBC/HPF 0-3 HPF (0-3)
[2022-03-13 15:43] LABS: Urine Culture Reflex No No
[2022-03-13] MEDS: Metoprolol Tartrate 5 MG/5 ML VIAL IVP SCH ×2 (16:12→16:21)
[2022-03-13] MEDS: Metoprolol Tartrate 25 MG TAB PO SCH (21:24)
[2022-03-14] MEDS ORDERED: Amlodipine 10 MG TAB PO SCH (09:00)
[2022-03-14] MEDS: hydrALAZINE 25 MG TAB PO SCH ×2 (10:48→13:52)
[2022-03-14] MEDS: Heparin 5,000 UNITS/ML VIAL SC SCH (10:48)
[2022-03-14] MEDS: Metoprolol Tartrate 25 MG TAB PO SCH (10:48)
[2022-03-14 12:06] VITALS: BP 129/87; TEMP 98.2
== END 2022-03-14 13:40 | disposition home or self-care (01) | DRG 305 ==
LOC: ERS 12:08 → ERHOLD 14:22 → NEURO 17:59 → OBSVTOIN 03-12 16:29
PROVIDERS: ADMIT Student in an Organized Health Care Education/Training Program; ATTEND Student in an Organized Health Care Education/Training Program
DX: I16.9 Hypertensive crisis, unspecified (principal); I47.1 Supraventricular tachycardia; R00.1 Bradycardia, unspecified; N18.9 Chronic kidney disease, unspecified; I12.9 Hypertensive chronic kidney disease with stage 1 through stage 4 chronic kidney disease, or unspecified chronic kidney disease; Z20.822 Contact with and (suspected) exposure to COVID-19; Z91.14 Patient's other noncompliance with medication regimen; Z95.818 Presence of other cardiac implants and grafts; Z82.49 Family history of ischemic heart disease and other diseases of the circulatory system
CPT/HCPCS: 36415; 70450; 70551; 71045; 80053; 81001; 82550; 84484; 85025; 93005; 93880; 96372; 96374; G0378; J1644; J2405; J2765; J7050; U0003; U0005

== ENCOUNTER 2024-02-10 10:31 | Observation (INO) | payer SELFPAY ==
[2024-02-10 12:01] LABS: ALT (SGPT) 53 U/L (8-55); AST (SGOT) 43 U/L (5-34); Albumin 4.2 g/dL (3.5-5.0); Alkaline Phosphatase 66 U/L (40-110); Anion Gap 13 mmol/L (10-20); BUN (Urea Nitrogen) 15 mg/dL (8.9-20.6); Bilirubin, Total 0.7 mg/dL (0.2-1.2); Calc. Creatinine Clearance 0 mL/min (70-130); Calcium 9.7 mg/dL (7.8-10.44); Carbon Dioxide 22 mmol/L (22-29); Chloride 107 mmol/L (98-107); Estimated GFR 96; Globulin 3.3 g/dL (2.4-3.5); Glucose 119 mg/dL (70-105); Potassium 4.2 mmol/L (3.5-5.1); Protein, Total 7.5 g/dL (6.0-8.3); Sodium 138 mmol/L (136-145)
[2024-02-10 12:05] LABS: Troponin I Less than 0.010 ng/mL (< 0.028)
[2024-02-10 12:06] LABS: #Basophils 0.05 10x3/uL (0.0-0.2); %Basophils 1.3 % (0.0-1.0); %Eosinophils 1.5 % (0.0-10.0); %Lymphocytes 24.9 % (21.0-51.0); %Monocytes 9.3 % (0.0-10.0); %Neutrophils 62.7 % (42.0-75.0); Hematocrit 55.5 % (42.0-52.0); Hemoglobin 18.5 g/dL (14.0-18.0); Mean Corpuscular HGB CONC 33.3 g/dL (32.0-36.0); Mean Corpuscular Hemoglobin 30.7 pg (27.0-31.0); Mean Platelet Volume 11.5 fL (7.4-10.4); Platelet Count 181 10x3/uL (130-400); RBC Distribution Width 12.1 % (11.5-14.5); Red Blood Cell (RBC) Count 6.03 mill/uL (4.70-6.10)
[2024-02-10] MEDS ORDERED: Calcium Carbonate 500 MG ChewTAB PO PRN (12:48)
[2024-02-10] MEDS ORDERED: Senokot S 8.6-50 MG TAB PO PRN (12:48)
[2024-02-10] MEDS ORDERED: Ondansetron PF 4 MG/2 ML Vial IVP PRN (12:48)
[2024-02-10] MEDS ORDERED: Meclizine HCl 12.5 MG TAB PO PRN (12:55)
[2024-02-10] MEDS ORDERED: Carvedilol 6.25 MG TAB PO SCH ×2 (13:00→17:00)
[2024-02-10] MEDS ORDERED: Lisinopril 20 MG TAB PO SCH (13:30)
[2024-02-10] MEDS ORDERED: Acetaminophen 325 MG TAB ONE (14:15)
[2024-02-10 18:42] VITALS: BMI 38.4
[2024-02-10] MEDS: traMADol HCl 50 MG TAB PO PRN (20:50)
[2024-02-10] MEDS: Carvedilol 25 MG TAB PO SCH (20:52)
[2024-02-10] MEDS: Lisinopril 20 MG TAB PO SCH ×2 (20:52)
[2024-02-10] MEDS ORDERED: Amlodipine 10 MG TAB PO SCH (21:00)
[2024-02-11 03:50] LABS: #Basophils 0.04 10x3/uL (0.0-0.2); %Basophils 0.6 % (0.0-1.0); %Eosinophils 1.3 % (0.0-10.0); %Lymphocytes 21.4 % (21.0-51.0); %Monocytes 12.2 % (0.0-10.0); %Neutrophils 64.4 % (42.0-75.0); Hemoglobin 16.5 g/dL (14.0-18.0); Mean Corpuscular HGB CONC 33.7 g/dL (32.0-36.0); Mean Corpuscular Hemoglobin 30.1 pg (27.0-31.0); Mean Corpuscular Volume 89.3 fL (78.0-98.0); Mean Platelet Volume 12.1 fL (7.4-10.4); Platelet Count 165 10x3/uL (130-400); RBC Distribution Width 12.2 % (11.5-14.5); Red Blood Cell (RBC) Count 5.49 mill/uL (4.70-6.10)
[2024-02-11 04:07] LABS: Hemoglobin A1c 5.6 % (4.0-6.0)
[2024-02-11 04:13] LABS: ALT (SGPT) 41 U/L (8-55); AST (SGOT) 25 U/L (5-34); Albumin 3.6 g/dL (3.5-5.0); Alkaline Phosphatase 62 U/L (40-110); Anion Gap 11 mmol/L (10-20); BUN (Urea Nitrogen) 21 mg/dL (8.9-20.6); Bilirubin, Total 0.3 mg/dL (0.2-1.2); Calc. Creatinine Clearance 94 mL/min (70-130); Calcium 9.3 mg/dL (7.8-10.44); Carbon Dioxide 27 mmol/L (22-29); Cardiac Risk 3.3 (Less than 4.5); Chloride 109 mmol/L (98-107); Cholesterol 137 mg/dl (< 200 Desired); Estimated GFR 59; Globulin 2.9 g/dL (2.4-3.5); Glucose 116 mg/dL (70-105); HDL Cholesterol 42 mg/dL (>60 Neg Risk); LDL Cholesterol, Calculated 66 mg/dL; Potassium 4.4 mmol/L (3.5-5.1); Protein, Total 6.5 g/dL (6.0-8.3); Sodium 143 mmol/L (136-145); Triglycerides 144 mg/dL (Less than 150)
[2024-02-11] MEDS ORDERED: Carvedilol 6.25 MG TAB PO SCH (08:00)
[2024-02-11] MEDS: Amlodipine 10 MG TAB PO SCH (08:06)
[2024-02-11] MEDS: Lorazepam 2 MG/ML VIAL SLOW IVP PRN (09:12)
[2024-02-11] MEDS: Lactated Ringer's 1,000 ML IV SCH (14:28)
[2024-02-11] MEDS: Acetaminophen 325 MG TAB PO PRN (16:09)
[2024-02-11 17:14] LABS: Amphetamine Not Detected (NotDetected); Bacteria/HPF None Seen HPF (None Seen); Barbiturates Screen Not Detected (NotDetected); Benzodiazepine Screen Not Detected (NotDetected); Bilirubin Negative (Negative); Blood, Urine Negative (Negative); Clarity Clear (Clear); Cocaine Metabolite Screen Not Detected (NotDetected); Glucose, Urine (Dipstick) Normal (Negative); Ketone, Urine Negative (Negative); Leukocyte Negative Leu/uL (Negative); Methadone Not Detected (NotDetected); Methamphetamine Not Detected (NotDetected); Nitrite Negative (Negative); Opiate Screen Not Detected (NotDetected); Oxycodone Screen Not Detected (NotDetected); Phencyclidine (PCP) Not Detected (NotDetected); Protein, Urine (Dipstick) Negative (Neg-Trace); RBC/HPF 0-3 HPF (0-3); Specific Gravity, Urine 1.009 (1.002-1.036); Squamous Epithelial None Seen HPF (0-3); THC/Cannabinoid Screen Not Detected (NotDetected); Tricyclic Screen Not Detected (NotDetected); Urobilinogen Normal mg/dL (Less than 2); WBC/HPF None Seen HPF (0-3)
[2024-02-12 04:52] LABS: Anion Gap 12 mmol/L (10-20); BUN (Urea Nitrogen) 14 mg/dL (8.9-20.6); Calc. Creatinine Clearance 110 mL/min (70-130); Calcium 9.5 mg/dL (7.8-10.44); Carbon Dioxide 26 mmol/L (22-29); Chloride 107 mmol/L (98-107); Estimated GFR 71; Glucose 127 mg/dL (70-105); Magnesium 2.2 mg/dL (1.6-2.6); Potassium 4.3 mmol/L (3.5-5.1); Sodium 141 mmol/L (136-145)
[2024-02-12] MEDS: hydrALAZINE 25 MG TAB PO SCH ×2 (11:11→15:21)
[2024-02-12 16:49] VITALS: BP 159/97; TEMP 98.2
== END 2024-02-12 17:25 | disposition home or self-care (01) ==
LOC: ERS 10:31 → SUATTDRO 10:31 → ERHOLD 12:48 → 2SW 18:28
PROVIDERS: ADMIT Internal Medicine; ATTEND Family Medicine
DX: R42 Dizziness and giddiness (principal); E66.9 Obesity, unspecified; I67.4 Hypertensive encephalopathy; N17.9 Acute kidney failure, unspecified; R00.1 Bradycardia, unspecified; H91.92 Unspecified hearing loss, left ear; I10 Essential (primary) hypertension; Z79.899 Other long term (current) drug therapy; Z98.890 Other specified postprocedural states
CPT/HCPCS: 36415; 70450; 70551; 71045; 80048; 80053; 80061; 80306; 81001; 83036; 83735; 83880; 84443; 84484; 85025; 93005; 96361; 96374; G0378; J2060; J7120

== ENCOUNTER 2024-02-20 09:18 | Inpatient (IN) | payer SELFPAY ==
[2024-02-20 10:25] LABS: #Basophils 0.03 10x3/uL (0.0-0.2); %Basophils 0.7 % (0.0-1.0); %Eosinophils 1.5 % (0.0-10.0); %Lymphocytes 25.2 % (21.0-51.0); %Monocytes 8.8 % (0.0-10.0); %Neutrophils 63.6 % (42.0-75.0); Hematocrit 55.3 % (42.0-52.0); Hemoglobin 19.3 g/dL (14.0-18.0); Mean Corpuscular HGB CONC 34.9 g/dL (32.0-36.0); Mean Platelet Volume 11.6 fL (7.4-10.4); Platelet Count 179 10x3/uL (130-400); RBC Distribution Width 12.5 % (11.5-14.5); Red Blood Cell (RBC) Count 6.43 mill/uL (4.70-6.10)
[2024-02-20 10:41] LABS: ALT (SGPT) 53 U/L (8-55); AST (SGOT) 33 U/L (5-34); Albumin 4.7 g/dL (3.5-5.0); Alkaline Phosphatase 73 U/L (40-110); Anion Gap 17 mmol/L (10-20); BUN (Urea Nitrogen) 21 mg/dL (8.9-20.6); Bilirubin, Total 0.4 mg/dL (0.2-1.2); Calc. Creatinine Clearance 0 mL/min (70-130); Calcium 10.7 mg/dL (7.8-10.44); Carbon Dioxide 25 mmol/L (22-29); Chloride 101 mmol/L (98-107); Estimated GFR 65; Glucose 113 mg/dL (70-105); Lipase 45 U/L (8-78); Potassium 4.5 mmol/L (3.5-5.1); Protein, Total 8.7 g/dL (6.0-8.3); Sodium 138 mmol/L (136-145)
[2024-02-20 10:44] LABS: Troponin I Less than 0.010 ng/mL (< 0.028)
[2024-02-20] MEDS ORDERED: Acetaminophen 325 MG TAB PO PRN (11:15)
[2024-02-20] MEDS ORDERED: Ondansetron PF 4 MG/2 ML Vial IVP PRN (11:15)
[2024-02-20] MEDS ORDERED: Calcium Carbonate 500 MG ChewTAB PO PRN (11:15)
[2024-02-20] MEDS ORDERED: hydrALAZINE 25 MG TAB ONE (11:49)
[2024-02-20] MEDS ORDERED: Aspirin Chewable 81 MG TAB ONE (11:49)
[2024-02-20] MEDS ORDERED: hydrALAZINE 20 MG/ML VIAL SLOW IVP PRN (12:04)
[2024-02-20 14:24] LABS: Troponin I Less than 0.010 ng/mL (< 0.028)
[2024-02-20] MEDS: hydrALAZINE 25 MG TAB PO SCH (15:00)
[2024-02-20 15:06] VITALS: BMI 36.8
[2024-02-20 16:32] LABS: Troponin I Less than 0.010 ng/mL (< 0.028)
[2024-02-20] MEDS: Sodium Chloride 0.9% 1,000 ML IV SCH (18:10)
[2024-02-21 04:55] LABS: #Basophils 0.03 10x3/uL (0.0-0.2); %Basophils 0.6 % (0.0-1.0); %Eosinophils 3.6 % (0.0-10.0); %Lymphocytes 37.7 % (21.0-51.0); %Monocytes 11.1 % (0.0-10.0); %Neutrophils 46.8 % (42.0-75.0); Hematocrit 51.1 % (42.0-52.0); Hemoglobin 17.5 g/dL (14.0-18.0); Mean Corpuscular HGB CONC 34.2 g/dL (32.0-36.0); Mean Corpuscular Hemoglobin 29.7 pg (27.0-31.0); Mean Corpuscular Volume 86.6 fL (78.0-98.0); Mean Platelet Volume 11.8 fL (7.4-10.4); Platelet Count 173 10x3/uL (130-400); RBC Distribution Width 12.6 % (11.5-14.5)
[2024-02-21 05:44] LABS: ALT (SGPT) 36 U/L (8-55); AST (SGOT) 21 U/L (5-34); Albumin 3.7 g/dL (3.5-5.0); Alkaline Phosphatase 61 U/L (40-110); Anion Gap 13 mmol/L (10-20); BUN (Urea Nitrogen) 22 mg/dL (8.9-20.6); Bilirubin, Total 0.3 mg/dL (0.2-1.2); Calc. Creatinine Clearance 102 mL/min (70-130); Calcium 9.4 mg/dL (7.8-10.44); Carbon Dioxide 23 mmol/L (22-29); Chloride 107 mmol/L (98-107); Estimated GFR 66; Glucose 103 mg/dL (70-105); Potassium 4.1 mmol/L (3.5-5.1); Protein, Total 6.7 g/dL (6.0-8.3); Sodium 139 mmol/L (136-145)
[2024-02-21] MEDS: Amlodipine 10 MG TAB PO SCH (09:27)
[2024-02-21] MEDS: Enoxaparin 40 MG (0.4 mL) SYRINGE SC SCH (09:29)
[2024-02-21] MEDS: Meclizine HCl 25 MG TAB PO SCH (15:07)
[2024-02-22] MEDS: hydrALAZINE 25 MG TAB PO SCH ×2 (10:59→14:11)
[2024-02-23 00:18] VITALS: TEMP 98.1
[2024-02-23 08:04] VITALS: BP 160/91
[2024-02-23] MEDS ORDERED: Regadenoson 0.4 MG/5 ML SYRINGE ONE (10:22)
== END 2024-02-23 18:10 | disposition home or self-care (01) | DRG 305 ==
LOC: SUATTDRO 09:18 → ERS 09:18 → ERHOLD 11:14 → 2SE 13:07 → OBSVTOIN 02-22 13:54
PROVIDERS: ADMIT Internal Medicine; ATTEND Internal Medicine
DX: I16.1 Hypertensive emergency (principal); N17.9 Acute kidney failure, unspecified; R42 Dizziness and giddiness; H91.8X2 Other specified hearing loss, left ear; E83.52 Hypercalcemia; N18.2 Chronic kidney disease, stage 2 (mild); I12.9 Hypertensive chronic kidney disease with stage 1 through stage 4 chronic kidney disease, or unspecified chronic kidney disease; Z79.899 Other long term (current) drug therapy; Z91.148 Patient's other noncompliance with medication regimen for other reason
CPT/HCPCS: 36415; 70450; 71045; 78452; 80053; 83690; 83835; 84484; 85025; 93005; 93017; 94760; A9500; J1650; J2785; J7030

== ENCOUNTER 2024-04-18 16:46 | Emergency (ER) | payer SELFPAY ==
[2024-04-18] MEDS ORDERED: Ketorolac Tromethamine 30 MG (1 mL) VIAL ONE (17:08)
== END 2024-04-18 17:38 | disposition home or self-care (01) ==
LOC: ERS 16:46
DX: H60.91 Unspecified otitis externa, right ear (principal); I10 Essential (primary) hypertension
CPT/HCPCS: 96372; 99282; J1885